=== PATIENT | female | born 1955 | race Caucasian/White ===

== ENCOUNTER 2021-01-02 07:56 | Emergency (ER) | payer BC, OTHER ==
[~2021-01-02 07:56] MED LIST: ATEN-166 PO; NAPR220C15 PO
[2021-01-02] MEDS ORDERED: HYDROcodone/ACETAMIN 5-325 MG TAB (NORCO/ VICODIN) PO ONE (08:30)
[2021-01-02] MEDS ORDERED: IBUP-1969 PO (08:59)
[2021-01-02] MEDS ORDERED: HYDR-3917 PO (08:59)
[2021-01-02] MEDS: DIPHENHYDRAMINE HCL/ZINC ACET 28.3 GM CREAM.GM. TP PRN (09:01)
[2021-01-02 10:16] VITALS: BP_SYST 152
== END 2021-01-02 10:15 | disposition home or self-care (01) ==
LOC: SED 07:56
DX: H10.211 Acute toxic conjunctivitis, right eye (principal)
CPT/HCPCS: 99283